=== PATIENT | female | born 1995 | race Two or more races ===

== ENCOUNTER 2024-02-12 08:30 | Inpatient (IN) | payer MEDICAID, OTHER ==
[~2024-02-12] VITALS: Ht 162.6 cm; Wt 81.6 kg
[2024-02-12] MEDS ORDERED: WITCH HAZEL-GLYCERIN PAD TOP PRN (10:15)
[2024-02-12] MEDS ORDERED: DERMOPLAST 60ML BOTTLE TOP PRN (10:15)
[2024-02-12] MEDS ORDERED: PHISODERM TOP SOLN 240ML BTL TOP PRN (10:15)
[2024-02-12] MEDS ORDERED: LIDOCAINE 2%HCL (LOCAL ANESTH.) INJ 20ML MDV IJ PRN (10:15)
[2024-02-12 11:19] LABS: Basophils # (auto) 0 10 ^3/uL (0-0.2); Basophils % (auto) 0.3 % (0.0-2.0); Eosinophils # (auto) 0 10 ^3/uL (0-0.8); Eosinophils % (auto) 0.2 % (0.0-7.0); Hematocrit 34.4 % (36.0-46.0); Hemoglobin 11.6 g/dL (12.2-16.2); Lymphocytes # (auto) 2.1 10 ^3/uL (0.4-5.4); Lymphocytes % (auto) 17.1 % (10.0-50.0); Mean Corpuscular Hgb Conc. 33.7 g/dL (32.0-36.0); Mean Corpuscular Volume 94.9 fL (80.0-100.0); Monocytes # (auto) 0.5 10 ^3/uL (0-1.3); Neutrophils # (auto) 9.7 10 ^3/uL (1.6-8.6); Neutrophils % (auto) 78.4 % (37.0-80.0); Platelet Count (auto) 274 10^3/uL (140-450); Red Blood Cells 3.62 10^6/uL (4.0-5.20); Red Cell Distribution Width 14.4 % (11.8-14.3); White Blood Cell 12.4 10^3/uL (4.4-10.8)
[2024-02-12 11:29] LABS: Alanine Aminotransferase 35 U/L (7-40); Albumin 4.2 g/dL (3.2-4.8); Alkaline Phosphatase 172 U/L (46-116); Anion Gap 8 (5-15); Aspartate Aminotransferase 61 U/L (13-40); BUN/Creatinine Ratio 15.9 (10.0-20.0); Bilirubin, Total 0.4 mg/dL (0.2-1.0); Blood Urea Nitrogen 7 mg/dL (9-23); Calcium 9.3 mg/dL (8.7-10.4); Carbon Dioxide 21 mmol/L (20-31); Chloride 107 mmol/L (98-107); Glucose 80 mg/dL (74-106); Potassium 4.1 mmol/L (3.5-5.1); Sodium 136 mmol/L (136-145); Uric Acid 6.2 mg/dL (3.1-7.8)
[2024-02-12 11:30] LABS: Total Protein 7.2 g/dL (5.7-8.2)
[2024-02-12] MEDS: PENICILLIN G POT 5MIL/D5 50ML 50 ML IV ONE (11:33)
[2024-02-12 11:36] LABS: INR 0.98 (0.9-1.15); Partial Thromboplastin Time 25.1 SEC (24.5-34.5); Prothrombin Time 10.4 sec (9.3-11.8)
[2024-02-12] MEDS ORDERED: miSOPROStol 100 mcg TAB PR PRN (11:45)
[2024-02-12] MEDS ORDERED: METHYLERGONOVINE MALEATE 0.2 MG/ML AMP IM PRN (11:45)
[2024-02-12] MEDS ORDERED: LACT. RINGERS/OXYTOCIN 20UNITS 1,000 ML IV SCH (12:00)
[2024-02-12] MEDS: ceFAZolin 1GM/50ML 50 ML IV SCH (12:15)
[2024-02-12] MEDS: LIDOCAINE 2%HCL (LOCAL ANESTH.) INJ 10ml MDV ONE (12:55)
[2024-02-12] MEDS ORDERED: ACETAMINOPHEN 325 MG TAB PO PRN (13:30)
[2024-02-12] MEDS ORDERED: ONDANSETRON ODT 4 MG TAB PO PRN (13:30)
[2024-02-12 13:46] LABS: Urine Bacteria None Seen /hpf (None Seen)
[2024-02-12 13:59] LABS: Urine Blood Negative /uL (Negative); Urine Clarity Clear (Clear); Urine Color Light-Yellow (Yellow); Urine Mucus FEW (None Seen); Urine Protein, UAD Negative (Negative); Urine Specific Gravity 1.019 (1.001-1.035); Urine Urobilinogen Normal (Negative); Urine WBC <1 /hpf (0 - 5); Urine pH 6.5 (5.0-9.0)
[2024-02-12 14:06] LABS: Protein, Urine 33.8 mg/dL (1-14)
[2024-02-12 14:07] LABS: Amphetamine Screen, Urine Neg (NEGATIVE); Barbiturate Scree,Urine Neg (NEGATIVE); Benzodiazephine Screen, Urine Neg (NEGATIVE)
[2024-02-12 14:08] LABS: Cannabinoid Screen, Urine Neg (NEGATIVE); Cocaine Screen, Urine Neg (NEGATIVE); Opiate Scree,Urine Neg (NEGATIVE); Phencyclidine Screen, Urine Neg (NEGATIVE); Urine Protein/Creatinine Ratio 0.64
[2024-02-12] MEDS: PENICILLIN G POTASSIUM 2,500,000 UNITS in D5W 5% 50 ML IV SCH (14:15)
[2024-02-12] MEDS: LACT. RINGERS/OXYTOCIN 20UNITS 500 ML IV ONE ×2 (18:19)
[2024-02-12 19:00] VITALS: BP 103/69; PULSE 76; RESP 16; TEMP 98.1; O2SAT 97
[2024-02-12] MEDS: IBUPROFEN 600 MG TAB PO PRN (19:46)
[2024-02-12] MEDS: LACTATED RINGER'S 1,000 ML IV SCH (20:28)
[2024-02-12] MEDS: DOCUSATE SOD 100 MG CAP PO SCH (22:00)
[2024-02-12 23:00] VITALS: BP 113/73; PULSE 70; RESP 16; TEMP 98.9; O2SAT 97
[2024-02-13 03:00] VITALS: BP 120/79; PULSE 64; RESP 16; TEMP 98; O2SAT 97
[2024-02-13 05:07] LABS: RPR Non Reactive (Non Reactive); Rubella Antibodies, IgG <0.90 index (Immune >0.99)
[2024-02-13 07:30] VITALS: BP 120/75; PULSE 81; RESP 16; TEMP 98.7; O2SAT 97
[2024-02-13 15:30] VITALS: BP 122/74; PULSE 80; RESP 16; TEMP 98.6; O2SAT 97
[2024-02-13 19:00] VITALS: BP 109/65; PULSE 76; RESP 18; TEMP 98.8; O2SAT 97
[2024-02-13 23:00] VITALS: BP 96/67; PULSE 60; RESP 16; TEMP 98.1; O2SAT 97
[2024-02-13] MEDS: ceFAZolin 1GM/50ML 50 ML IV SCH (23:55)
[2024-02-14 03:00] VITALS: BP 117/76; PULSE 65; RESP 18; TEMP 98.2; O2SAT 100
[2024-02-14 07:00] VITALS: BP 110/71; PULSE 78; RESP 18; TEMP 98.5; O2SAT 97
[2024-02-14 11:01] VITALS: BP 115/73; PULSE 62; RESP 16; TEMP 98; O2SAT 95
== END 2024-02-14 13:48 | disposition home or self-care (01) | DRG 560 ==
LOC: LDRP 08:30 → INTOOBSV 09:10 → OBSVTOIN 09:10 → LDRP 10:13
PROVIDERS: ADMIT Obstetrics & Gynecology; ATTEND Obstetrics & Gynecology
PROC: 10E0XZZ Delivery of Products of Conception, External Approach (ICD-10-PCS; principal; 2024-02-12)
PROC: 0KQM0ZZ Repair Perineum Muscle, Open Approach (ICD-10-PCS; 2024-02-12)
PROC: 3E0R3BZ Introduction of Anesthetic Agent into Spinal Canal, Percutaneous Approach (ICD-10-PCS; 2024-02-12)
PROC: 00HU33Z Insertion of Infusion Device into Spinal Canal, Percutaneous Approach (ICD-10-PCS; 2024-02-12)
DX: O99.344 Other mental disorders complicating childbirth (principal); Z37.0 Single live birth; F32.A Depression, unspecified; Z3A.38 38 weeks gestation of pregnancy; O70.1 Second degree perineal laceration during delivery
CPT/HCPCS: 36415; 59025; 59409; 76805; 80053; 80307; 81001; 81002; 82570; 84156; 84550; 85025; 85610; 85730; 86592; 86703; 86762; 86780; 86803; 86850; 86900; 86901; 87340; 94760; 96360; 96361; 96365; 96366; G0378; J2003; J2540; J2590; J7060

== ENCOUNTER 2024-08-16 00:23 | Emergency (ER) | payer MEDICAID ==
[~2024-08-16] VITALS: Ht 154.9 cm; Wt 73.8 kg
--- NOTE | 2024-08-16 00:47 | ED.PDOC ---
HPI Comments 29-year-old female with no reported PMHx presents with a chief complaint of chest pain and SOB. Patient states that her pain is localized to her right shoulder, radiating into her chest, describes as pressure, and rates her pain a 10/10. Patient also states that she feels SOB and not able to breathe properly. Patient is crying in triage. Patient has no history of PE, she was not a smoker, no prolonged travel, immobilization or recent surgery, patient does not take control hormonal supplementation. Chief Complaint: Chest Pain Time Seen by MD: 00:37 Reviewed Notes: Medications, Allergies Allergies: Coded Allergies: NO KNOWN ALLERGIES (Unverified , 02/12/24) Home Meds Active Scripts Acetaminophen (Acetaminophen) 500 Mg Tab, 500 MG PO BIDPRN PRN for 3 Days, #6 TAB Prov:AYESHA STOKES MD 08/16/24 Information Source: Patient Mode of Arrival: Ambulatory Severity: Moderate Timing: Days Duration: Since onset Prehospital treatment: None Location: Chest (R) Radiation: Shoulder (R) Quality: Pressure Onset: At Rest Cardiac Risk Factors: None PE Risk Factors: None History of: None Associated Signs and Symptoms: SOB Vital Signs Vital Signs Date Time Temp Pulse Resp B/P (MAP) Pulse Ox O2 Delivery O2 Flow Rate FiO2 08/16/24 03:22 64 08/16/24 03:11 15 135/80 08/16/24 03:08 99.1 99 99.1 08/16/24 02:10 Room Air* 0 21 Physical Exam General: Awake, alert and oriented. No acute distress. Skin: Skin in warm, dry and intact. Appropriate color for ethnicity. HEENT: The head is normocephalic and atraumatic. Conjunctivae are clear without exudates or hemorrhage. Sclera is non-icteric. EOM are intact. No signs of nystagmus. Eyelids are normal in appearance without swelling or lesions. Oral mucosa is pink and moist Neck: The neck is supple with normal range of motion. No JVD. Cardiac: Heart rate and rhythm are normal. No murmurs, gallops, or rubs are auscultated. Radial pulses equal Respiratory: No signs of respiratory distress. Lung sounds are clear in all lobes bilaterally without rales, rhonchi, or wheezes. Abdominal: Abdomen is soft, non-tender without distention. Bowel sounds are present and normoactive in all four quadrants. Extremities: Upper and lower extremities are atraumatic in appearance without deformity or edema. Neurological: The patient is awake, alert and oriented to person, place, and time with normal speech. Speech is clear. There is no facial asymmetry. Psychiatric: Tearful affect Review of Systems: REVIEW OF SYSTEMS: No fever, no chills, or fatigue HEENT: No sore throat, no earache, no congestion, no neck pain. Cardiac: Right-sided chest pain. No palpitations. Lungs: Positive shortness of breath, no cough. GI: No nausea, no vomiting, no diarrhea, no constipation, no abdominal pain : No dysuria, frequency, or urgency. No hematuria. Musculoskeletal: Right Shoulder pain , no joint swelling, no extremity edema. Skin: No rash, no itching. Neuro: No headache, no dizziness, no weakness Past Medical History PAST MEDICAL HISTORY: Denies Surgical History: Denies all surgeries MEDICAL OFFICE SCHEDULER History: Denies all MEDICAL OFFICE SCHEDULER Hx Family History Family History: Reviewed,noncontributory to illness Social History Smoker: Non-Smoker Alcohol: Denies ETOH Use Drugs: Denies Drug Use Lives In: Home EKG EKG : Pulse Rate (adult): 88 [place]: Normal Cardiac Rhythm: NSR Block: None Hypertrophy: None ST: Normal Comments No STEMI Was a procedure done? Was a procedure done?: No CP Differential Dx Differential Diagnosis: Anxiety / Panic Attack, Hyperthyroidism, [place], Pulmonary Embolus, WPW, Other Differential Diagnosis: Chest Wall Pain, Cholelithiasis, Costochondritis, Esophageal reflux/spasm, Gastritis, Pericarditis, Pneumonia, Other X-Ray, Labs, Meds, VS Vital Signs Date Time Temp Pulse Resp B/P (MAP) Pulse Ox O2 Delivery O2 Flow Rate FiO2 08/16/24 03:22 64 08/16/24 03:11 75 15 135/80 08/16/24 03:08 99.1 79 20 141/83 (102) 99 99.1 08/16/24 02:26 79 18 141/83 08/16/24 02:10 79 20 99 Room Air* 0 21 08/16/24 01:20 79 08/16/24 00:47 88 08/16/24 00:30 88 08/16/24 00:29 98.7 97 20 147/88 (107) 99 98.7 Lab Test 08/16/24 01:38 08/16/24 00:56 08/16/24 00:53 08/16/24 00:35 Range/Units Troponin I High Sensitivity < 3 L < 3 L < 3 L </=34 ng/L Sodium Level 139 136-145 mmol/L Potassium Level 4.0 3.5-5.1 mmol/L Chloride Level 104 98-107 mmol/L Carbon Dioxide Level 26 20-31 mmol/L Anion Gap 9 5-15 Blood Urea Nitrogen 15 9-23 mg/dL Creatinine 0.64 0.550-1.02 mg/dL Glomerular Filtration Rate Calc 123 >90 mL/min BUN/Creatinine Ratio 23.4 H 10.0-20.0 Serum Glucose 112 H 74-106 mg/dL Calcium Level 10.0 8.7-10.4 mg/dL Total Bilirubin 0.2 0.2-1.0 mg/dL Aspartate Amino Transferase (AST) 24 13-40 U/L Alanine Aminotransferase (ALT) 40 7-40 U/L Alkaline Phosphatase 122 H 46-116 U/L Total Protein 8.3 H 5.7-8.2 g/dL Albumin 4.8 3.2-4.8 g/dL White Blood Count 11.4 H 4.4-10.8 10^3/uL Red Blood Count 4.60 4.0-5.20 10^6/uL Hemoglobin 13.7 12.2-16.2 g/dL Hematocrit 40.4 36.0-46.0 % Mean Corpuscular Volume 87.7 80.0-100.0 fL Mean Corpuscular Hemoglobin 29.9 28.0-32.0 pg Mean Corpuscular Hemoglobin Concent 34.1 32.0-36.0 g/dL Red Cell Distribution Width 12.9 11.8-14.3 % Platelet Count 328 140-450 10^3/uL Mean Platelet Volume 8.2 6.9-10.8 fL Neutrophils (%) (Auto) 59.0 37.0-80.0 % Lymphocytes (%) (Auto) 33.6 10.0-50.0 % Monocytes (%) (Auto) 6.1 0.0-12.0 % Eosinophils (%) (Auto) 0.9 0.0-7.0 % Basophils (%) (Auto) 0.4 0.0-2.0 % Neutrophils # (Auto) 6.7 1.6-8.6 10 ^3/uL Lymphocytes # (Auto) 3.8 0.4-5.4 10 ^3/uL Monocytes # (Auto) 0.7 0-1.3 10 ^3/uL Eosinophils # (Auto) 0.1 0-0.8 10 ^3/uL Basophils # (Auto) 0.1 0-0.2 10 ^3/uL Nucleated Red Blood Cells 0.0 % D-Dimer, Quantitative 0.24 0.0-0.49 mg/L FEU B-Type Natriuretic Peptide 9.38 0-100 pg/mL Current Medications Medications (Trade) Dose Ordered Sig/Nils Route Start Time Stop Time Status Last Admin Aspirin 324 mg ONCE ONCE PO 08/16/24 00:45 08/16/24 00:46 DC 08/16/24 02:25 Morphine Sulfate 2 mg ONCE ONCE IV 08/16/24 00:45 08/16/24 00:46 DC 08/16/24 02:26 Ondansetron HCl (Zofran) 4 mg ONCE ONCE IV 08/16/24 02:30 08/16/24 02:31 DC 08/16/24 02:26 [place] [id number] Ph: [phone] DIAGNOSTIC IMAGING Diagnostic Imaging Report : [id number] Signed PATIENT: CHARLOTTE ELIZALDE ACCT: [id number] UNIT: [id number] : 1995 LOC: ER ROOM / BED: / AGE / SEX: 29 / F ADM STATUS: REG ER SERVICE [id number] ORDERING PHYSICIAN: AYESHA STOKES MD PROCEDURE(s): CXR2 - CHEST TWO VIEWS ROUTINE REASON: Chest pain ORDER NUMBER(s): [id number], ACCESSION NUMBER(s): [id number] CHEST TWO VIEWS ROUTINE CLINICAL HISTORY: Chest pain COMPARISON: None TECHNIQUE: Frontal and lateral view of the chest was obtained FINDINGS: Lines and Tubes: None Lungs: No focal consolidation. Pleura: No effusion. No pneumothorax. Cardiomediastinal contours: Unremarkable Bones: No acute osseous abnormality. IMPRESSION: 1. No acute cardiopulmonary disease. ATED BY: SAIRA RODRIGUEZ MD DICTATED DATE/TIME: 08/16/24449 SIGNED BY: SAIRA RODRIGUEZ MD SIGNED DATE/TIME: 08/16/24449 CC: Images Reviewed?: Images reviewed and evaluated by me (Independent interpretation of chest x-ray: No acute disease) Time of 1ST Reevaluation: 01:07 Reevaluation 1ST: Unchanged Patient Education/Counseling: Need For Follow Up Family Education/Counseling: No Family Present Departure 1 Departure Time of Disposition: 04:35 Impression: Primary Impression: Chest pain Disposition: 01 HOME / SELF CARE / HOMELESS Condition: Stable Additional Instructions: INSTRUCCIONES DE BRENDEN DE Urgencias Instrucciones: Nancy atentamente todas las instrucciones proporcionadas en sera paquete. Aunque le hayan dado el brenden del Departamento de Emergencias, esto no significa que tenga un "certificado de buena lilly". Hoy no se camacho realizado ningn diagnstico definitivo para alvin sntomas. Es posible que ests en proceso de desarrollar ana enfermedad grave. Es por eso que debe regresar al servicio de urgencias sin falta si presenta algn sntoma nuevo o que empeora (especialmente si alvin sntomas incluyen dolor en el pecho, dificultad para respirar, dolor abdominal, fiebre, dolor de robb, confusin, dificultad para trish o caminar). Tambin es muy importante que consulte a un mdico de atencin primaria dentro de los prximos 2 a 3 dao para realizar un seguimiento. Si no puede conseguir ana joe, regrese al servicio de urgencias para ana nueva evaluacin. Dolor en el pecho: Instrucciones de cuidado Descripcin general Hay muchas cosas que pueden causar dolor en el pecho. Algunas no son graves y mejoran por s solas en unos dao. Sin embargo, algunos tipos de dolor en el pecho requieren ms pruebas y tratamiento. Es posible que crook mdico le haya recomendado ana visita de seguimiento en los prximos dao. Si no mejora, es posible que necesite ms pruebas o tratamiento. Aunque crook mdico le haya dado de brenden, debe estar atento a cualquier problema. El mdico le realiz ana revisin exhaustiva, brody a veces pueden surgir problemas ms adelante. Si presenta sntomas nuevos o si estos no mejoran, busque atencin mdica de inmediato. Si tiene un dolor o presin en el pecho peor o diferente que dura ms de 5 minutos o si se desmay (perdi el conocimiento), llame al 911 o busque otra ayuda de emergencia de inmediato. Ana visita mdica es solo un paso en crook tratamiento. Incluso si se siente mejor, debe seguir las recomendaciones de crook mdico, kely asistir a todas las citas de seguimiento sugeridas y anastasia los medicamentos exactamente kely se le indique. [place] le ayudar a recuperarse y a prevenir problemas futuros. Navy Material Inspector puedes cuidarte en casa? Descansa hasta que te sientas mejor. [place] crook medicamento exactamente kely se lo recetaron. Llame a crook mdico si sam que tiene algn problema con crook medicamento. No conduzca despus de anastasia un analgsico recetado. Cundo debes pedir ayuda? Llame al 911 si: Te desmayaste (perdiste el conocimiento). Tienes dificultad grave para respirar. Tiene sntomas de un ataque cardaco. Estos pueden incluir: Dolor o presin en el pecho, o ana sensacin extraa en el pecho. Transpiracin. Dificultad para respirar. Nuseas o vmitos. Dolor, presin o ana sensacin extraa en la espalda, el mayra, la mandbula o la parte superior del abdomen o en roger o ambos hombros o brazos. Mareo o debilidad repentina. Un ritmo cardaco rpido o irregular. Despus de llamar al 911 , el operador podra indicarle que mastique ana aspirina para adultos o de 2 a 4 aspirinas de dosis baja. Espere la ambulancia. No intente conducir. Llame a crook mdico ahora o busque atencin mdica inmediata si: Tienes alguna dificultad para respirar. Tiene un dolor en el pecho nuevo o diferente. Se siente mareado o aturdido o kely si se pudiera desmayar. Preste atencin de cerca a los cambios en crook lilly y asegrese de comunicarse con crook mdico si no mejora kely se esperaba. Crditos para el dolor de pecho: Instrucciones de cuidado Actualizado al: 2023 Autor: Personal de [employer] [place] de revisin clnica Toda la educacin de [employer] es revisada por un equipo que incluye mdicos, enfermeras, profesionales avanzados, dietistas registrados y otros profesionales de la lilly. e-Prescriptions Acetaminophen (Acetaminophen) 500 Mg Tab 500 MG PO BIDPRN PRN for 3 Days, #6 TAB Prov: AYESHA STOKES MD 08/16/24 Comments 29-year-old female with right-sided chest pain. EKG negative for signs of ischemia. High sensitivity troponin negative. D-dimer negative. CXR shows no acute process. Presentation not suggestive of acute coronary syndrome, pulmonary embolism or aortic dissection. Patient improved at time of discharge. No hypoxia, respiratory distress or dyspnea at discharge. Patient able to ambulate without difficulty. Patient well-appearing, nontoxic. Advised prompt follow-up with PCP, return to the ED with any new, worsening or concerning symptoms. Critical Care Note Critical Care Time?: No Stability Stability form required: No Heart Score Heart Score: Heart Score Response (Comments) Value History Slightly Suspicious 0 EKG Normal 0 Age <45 0 Risk Factors No known risk factors 0 Troponin Normal limit 0 Total 0 I personally scribed for AYESHA STOKES MD ([email or web address]) on 08/16/24 at 00:47. Electronically submitted by Marek Fitzgerald ([email or web address]). AYESHA STOKES MD Aug 16, 2024 00:47
--- NOTE | 2024-08-16 01:03 | ECG ---
[facility] Test Date: 2024-08-16 Test Time: 00:30:55 Pat Name: CHARLOTTE ELIZALDE Department: ER Room: Gender: F Shellfish Harvester: TAIWO : 1995 Requested By: AYESHA STOKES Order Number: [id number] Reading MD: Tommy Bello Measurements Intervals [place] Rate: 88 P: 51 [place]: 135 QRS: 41 QRSD: 113 T: 19 QT: 347 QTc: 420 Interpretive Statements Sinus rhythm Borderline intraventricular conduction delay Electronically Signed On 08-18-2024 20:57:27 PDT by Tommy Bello Please click the below link to view image of tracing.
[2024-08-16 01:14] LABS: Basophils # (auto) 0.1 10 ^3/uL (0-0.2); Basophils % (auto) 0.4 % (0.0-2.0); Eosinophils # (auto) 0.1 10 ^3/uL (0-0.8); Eosinophils % (auto) 0.9 % (0.0-7.0); Hematocrit 40.4 % (36.0-46.0); Hemoglobin 13.7 g/dL (12.2-16.2); Lymphocytes # (auto) 3.8 10 ^3/uL (0.4-5.4); Lymphocytes % (auto) 33.6 % (10.0-50.0); Mean Corpuscular Hemoglobin 29.9 pg (28.0-32.0); Mean Corpuscular Hgb Conc. 34.1 g/dL (32.0-36.0); Mean Corpuscular Volume 87.7 fL (80.0-100.0); Monocytes # (auto) 0.7 10 ^3/uL (0-1.3); Monocytes % (auto) 6.1 % (0.0-12.0); Neutrophils # (auto) 6.7 10 ^3/uL (1.6-8.6); Platelet Count (auto) 328 10^3/uL (140-450); Red Cell Distribution Width 12.9 % (11.8-14.3); White Blood Cell 11.4 10^3/uL (4.4-10.8)
[2024-08-16 01:35] LABS: Anion Gap 9 (5-15); Aspartate Aminotransferase 24 U/L (13-40); BUN/Creatinine Ratio 23.4 (10.0-20.0); Blood Urea Nitrogen 15 mg/dL (9-23); Carbon Dioxide 26 mmol/L (20-31); Chloride 104 mmol/L (98-107); Sodium 139 mmol/L (136-145)
[2024-08-16 01:36] LABS: Alanine Aminotransferase 40 U/L (7-40); Albumin 4.8 g/dL (3.2-4.8); Alkaline Phosphatase 122 U/L (46-116); Bilirubin, Total 0.2 mg/dL (0.2-1.0); Glucose 112 mg/dL (74-106); Total Protein 8.3 g/dL (5.7-8.2)
[2024-08-16 02:10] VITALS: PULSE 79; RESP 20; O2SAT 99
[2024-08-16] MEDS: ASPirin 81 mg TAB PO ONE (02:25)
[2024-08-16] MEDS: ONDANSETRON HCL 4 MG/2 ML VIAL IV ONE (02:26)
[2024-08-16] MEDS: MORPHINE SULFATE INJ 2 MG/ml SYRG IV ONE (02:26)
[2024-08-16 03:08] VITALS: TEMP 99.1; O2SAT 99
[2024-08-16 03:11] VITALS: BP 135/80; RESP 15
[2024-08-16 03:22] VITALS: PULSE 64
[2024-08-16] MEDS ORDERED: ACET500T58 PO (04:37)
--- NOTE | 2024-08-16 04:52 | DVH ---
XY CHEST TWO VIEWS ROUTINE CLINICAL HISTORY: Chest pain COMPARISON: None TECHNIQUE: Frontal and lateral view of the chest was obtained FINDINGS: Lines and Tubes: None Lungs: No focal consolidation. Pleura: No effusion. No pneumothorax. Cardiomediastinal contours: Unremarkable Bones: No acute osseous abnormality. IMPRESSION: 1. No acute cardiopulmonary disease.
--- NOTE | 2024-08-16 06:51 | ECG ---
[facility] Test Date: 2024-08-16 Test Time: 01:20:52 Pat Name: CHARLOTTE ELIZALDE Department: ED Room: Gender: F Camera Repairer: ADRIENNE : 1995 Requested By: AYESHA STOKES Order Number: [id number] Reading MD: Tommy Bello Measurements Intervals [place] Rate: 79 P: 39 [place]: 125 QRS: 27 QRSD: 91 T: 4 QT: 379 QTc: 435 Interpretive Statements Sinus rhythm Electronically Signed On 08-18-2024 20:57:52 PDT by Tommy Bello Please click the below link to view image of tracing.
--- NOTE | 2024-08-16 06:52 | ECG ---
[facility] Test Date: 2024-08-16 Test Time: 03:22:43 Pat Name: CHARLOTTE ELIZALDE Department: ED Room: Gender: F Cash Processing Specialist: ADRIENNE : 1995 Requested By: AYESHA STOKES Order Number: [id number] Reading MD: Tommy Bello Measurements Intervals [place] Rate: 64 P: 43 [place]: 145 QRS: 32 QRSD: 81 T: 24 QT: 387 QTc: 400 Interpretive Statements Sinus rhythm Baseline wander in lead(s) V4 Electronically Signed On 08-18-2024 20:58:10 PDT by Tommy Bello Please click the below link to view image of tracing.
== END 2024-08-16 05:07 | disposition home or self-care (01) ==
LOC: ER 00:23
DX: R07.89 Other chest pain (principal); M25.511 Pain in right shoulder
CPT/HCPCS: 36415; 71046; 80053; 83880; 84484; 85025; 85379; 93005; 96374; 96375; 99285; J2270; J2405